=== PATIENT | female | born 1995 | race African-American/Black ===

== ENCOUNTER 2019-03-05 12:40 | Inpatient (IN) | payer BC ==
[~2019-03-05] VITALS: Ht 160 cm; Wt 137.9 kg
[2019-03-05 12:49] VITALS: BP_SYST 125
[2019-03-05] MEDS ORDERED: IPRATROPIUM/ALBUTEROL SULFATE 3 ML AMPUL.NEB (DUONEB) INH ONE ×2 (14:15→18:00)
[2019-03-05 14:37] LABS: BASOPHILS % (AUTO) 0.2 % (0.0-2.0); EOSINOPHILS # (AUTO) 0.2 K/uL (0.0-0.4); EOSINOPHILS % (AUTO) 2.3 % (0.0-4.0); HEMATOCRIT 39.5 % (36-48); HEMOGLOBIN 13.3 g/dL (12.0-16.0); LYMPHOCYTES # (AUTO) 2.7 K/uL (1.0-5.5); MEAN CORPUSCULAR HEMOGLOBIN 29 pg (27-31); MEAN CORPUSCULAR HGB CONC 34 % (32-36); MEAN CORPUSCULAR VOLUME 87 fL (79.0-98.0); MONOCYTES % (AUTO) 11.4 % (1.7-9.3); NEUTROPHILS % (AUTO) 56.1 % (40.0-70.0); PLATELET COUNT (AUTO) 365 K/uL (130-430); RED BLOOD CELL COUNT(AUTO) 4.55 MIL/uL (4.2-6.2); RED CELL DISTRIBUTION WIDTH 13.6 % (9.0-15.0); WHITE BLOOD COUNT (AUTO) 8.9 K/uL (4.8-10.8)
[2019-03-05 14:48] LABS: CALCIUM 9.2 mg/dL (8.4-11.0); CREATININE 0.63 mg/dL (0.55-1.30); POTASSIUM 3.6 mmol/L (3.5-5.1)
[2019-03-05 14:54] LABS: ALBUMIN 3.5 g/dL (3.4-4.8); PROTHROMBIN TIME 10.3 SECS (9.5-12.5); TOTAL BILIRUBIN 0.7 mg/dL (0.0-1.0)
[2019-03-05 15:21] LABS: BLOOD, URINE 2+ (NEGATIVE); CLARITY/URINE HAZY (CLEAR); COLOR,URINE YELLOW (YELLOW); GLUCOSE,URINE NEGATIVE (NEGATIVE); KETONES,URINE TRACE (NEGATIVE); LEUKOCYTE ESTERASE ,URINE NEGATIVE (NEGATIVE); NITRITE, URINE NEGATIVE (NEGATIVE); PROTEIN URINE 3+ (NEGATIVE)
[2019-03-05 15:28] LABS: BILIRUBIN,URINE NEGATIVE (NEGATIVE)
[2019-03-05 15:30] LABS: BACTERIA,URINE FEW /HPF (None Seen); HYALINE CASTS, URINE 0-10 /LPF (None Seen); MUCUS,URINE None Seen /LPF (None Seen); RBC,URINE 0-3 /HPF (0-3)
[2019-03-05] MEDS ORDERED: ENOXAPARIN SODIUM 120 MG/0.8 ML SYRINGE SUBCUT ONE (16:30)
[2019-03-05] MEDS ORDERED: IOHEXOL 350 mgI/mL, 150 ML INFUS..BTL IV ONE (16:34)
[2019-03-05] MEDS ORDERED: IPRATROPIUM/ALBUTEROL SULFATE 3 ML AMPUL.NEB (DUONEB) ONE (18:12)
[2019-03-05] MEDS ORDERED: PIPERACILLIN/TAZO 3.375 GM in NS 50 ML IV ONE (18:30)
[2019-03-05] MEDS: ALBUTEROL SULFATE 0.083% 2.5 MG/3 ML VIAL.NEB INH SCH ×2 (19:00→23:10)
[2019-03-05] MEDS: IPRATROPIUM BROM 0.5 MG/2.5 ML VIAL.NEB (ATROVENT) INH SCH ×2 (19:00→23:11)
[2019-03-05] MEDS ORDERED: PIPERACILLIN/TAZO 4.5 GM in NS 100 ML IV SCH ×2 (19:00→22:26)
[2019-03-05] MEDS ORDERED: ALBUTEROL SULFATE 0.083% 2.5 MG/3 ML VIAL.NEB INH PRN (19:00)
[2019-03-05] MEDS ORDERED: IPRATROPIUM BROM 0.5 MG/2.5 ML VIAL.NEB (ATROVENT) INH PRN (19:00)
[2019-03-05] MEDS ORDERED: PIPERACILLIN/TAZOBACTAM 3.375 GM/VIAL (ZOSYN) IV ONE (20:09)
[2019-03-05] MEDS: NACL 0.9% 1,000 ML IV SCH ×2 (20:59→22:52)
[2019-03-05] MEDS ORDERED: methylPREDNISolone SOD SUCC/PF 62.5 MG/ML VIAL IVP ONE (21:00)
[2019-03-05 21:20] VITALS: BP_SYST 149
[2019-03-05 22:00] VITALS: BP_SYST 136
[2019-03-05 22:16] VITALS: BP_SYST 136
[2019-03-05] MEDS ORDERED: PIPERACILLIN/TAZOBACTAM 4.5 GM/VIAL (ZOSYN) IV ONE (22:47)
[2019-03-05] MEDS ORDERED: AZITHROMYCIN 500 MG/VIAL (ZITHROMAX) IV ONE (22:48)
[2019-03-05] MEDS: AZITHROMYCIN 500 MG in NS 250 ML IV SCH (22:52)
[2019-03-05 23:00] VITALS: BP_SYST 163
[2019-03-06] VITALS (23 sets, daily range): BP systolic 111–174
[2019-03-06] MEDS: PIPERACILLIN/TAZO 4.5 GM in NS 100 ML IV SCH ×3 (01:39→17:54)
[2019-03-06] MEDS: ALBUTEROL SULFATE 0.083% 2.5 MG/3 ML VIAL.NEB INH SCH ×2 (03:43→07:28)
[2019-03-06] MEDS: IPRATROPIUM BROM 0.5 MG/2.5 ML VIAL.NEB (ATROVENT) INH SCH ×4 (03:43→19:41)
[2019-03-06 06:31] LABS: BASOPHILS % (AUTO) 0.4 % (0.0-2.0); EOSINOPHILS # (AUTO) 0.1 K/uL (0.0-0.4); EOSINOPHILS % (AUTO) 0.6 % (0.0-4.0); HEMATOCRIT 38.6 % (36-48); HEMOGLOBIN 12.7 g/dL (12.0-16.0); LYMPHOCYTES # (AUTO) 1.5 K/uL (1.0-5.5); LYMPHOCYTES % (AUTO) 17.4 % (20.5-51.5); MEAN CORPUSCULAR HEMOGLOBIN 30 pg (27-31); MEAN CORPUSCULAR HGB CONC 33 % (32-36); MEAN CORPUSCULAR VOLUME 90 fL (79.0-98.0); MONOCYTES # (AUTO) 0.5 K/uL (0.0-1.0); MONOCYTES % (AUTO) 5.7 % (1.7-9.3); NEUTROPHILS # (AUTO) 6.7 K/uL (1.8-7.7); NEUTROPHILS % (AUTO) 75.9 % (40.0-70.0); PLATELET COUNT (AUTO) 354 K/uL (130-430); RED CELL DISTRIBUTION WIDTH 13.7 % (9.0-15.0); WHITE BLOOD COUNT (AUTO) 8.9 K/uL (4.8-10.8)
[2019-03-06 07:05] LABS: ALBUMIN 3.2 g/dL (3.4-4.8); CALCIUM 9.3 mg/dL (8.4-11.0); CREATININE 0.76 mg/dL (0.55-1.30); PHOSPHORUS 4.7 mg/dL (2.7-4.5); POTASSIUM 3.8 mmol/L (3.5-5.1); TOTAL BILIRUBIN 0.8 mg/dL (0.0-1.0)
[2019-03-06] MEDS: ENOXAPARIN SODIUM 40 MG/0.4 ML SYRINGE SUBCUT SCH (09:34)
[2019-03-06] MEDS: methylPREDNISolone SOD SUCC 40 MG/ML VIAL IVP SCH ×2 (09:34→20:56)
[2019-03-06] MEDS: LevALBUTEROL HCL 1.25 MG/0.5 ML *CONC.* VIAL.NEB (XOPENEX CONC.) INH SCH ×2 (13:37→19:40)
[2019-03-06] MEDS: AZITHROMYCIN 500 MG in NS 250 ML IV SCH (21:04)
[2019-03-06] MEDS: ACETAMINOPHEN 325 MG TABLET PO PRN (22:55)
[2019-03-07] VITALS (24 sets, daily range): BP systolic 117–158
[2019-03-07] MEDS: LevALBUTEROL HCL 1.25 MG/0.5 ML *CONC.* VIAL.NEB (XOPENEX CONC.) INH SCH ×4 (00:20→19:35)
[2019-03-07] MEDS: IPRATROPIUM BROM 0.5 MG/2.5 ML VIAL.NEB (ATROVENT) INH SCH ×4 (00:20→19:35)
[2019-03-07] MEDS: PIPERACILLIN/TAZO 4.5 GM in NS 100 ML IV SCH ×3 (01:11→17:34)
[2019-03-07 06:38] LABS: BASOPHILS % (AUTO) 0.5 % (0.0-2.0); HEMATOCRIT 37.5 % (36-48); HEMOGLOBIN 12.2 g/dL (12.0-16.0); LYMPHOCYTES # (AUTO) 0.7 K/uL (1.0-5.5); LYMPHOCYTES % (AUTO) 8.2 % (20.5-51.5); MEAN CORPUSCULAR HEMOGLOBIN 29 pg (27-31); MEAN CORPUSCULAR HGB CONC 33 % (32-36); MEAN CORPUSCULAR VOLUME 90 fL (79.0-98.0); MONOCYTES # (AUTO) 0.8 K/uL (0.0-1.0); NEUTROPHILS # (AUTO) 7.3 K/uL (1.8-7.7); NEUTROPHILS % (AUTO) 82.3 % (40.0-70.0); PLATELET COUNT (AUTO) 297 K/uL (130-430); RED BLOOD CELL COUNT(AUTO) 4.17 MIL/uL (4.2-6.2); RED CELL DISTRIBUTION WIDTH 13.8 % (9.0-15.0); WHITE BLOOD COUNT (AUTO) 8.8 K/uL (4.8-10.8)
[2019-03-07] MEDS: ACETAMINOPHEN 325 MG TABLET PO PRN (06:55)
[2019-03-07 07:13] LABS: ALBUMIN 3.3 g/dL (3.4-4.8); CALCIUM 9.8 mg/dL (8.4-11.0); CREATININE 0.87 mg/dL (0.55-1.30); PHOSPHORUS 2.8 mg/dL (2.7-4.5); POTASSIUM 4.2 mmol/L (3.5-5.1); TOTAL BILIRUBIN 0.8 mg/dL (0.0-1.0)
[2019-03-07] MEDS: methylPREDNISolone SOD SUCC 40 MG/ML VIAL IVP SCH ×2 (08:12→20:26)
[2019-03-07] MEDS: ENOXAPARIN SODIUM 40 MG/0.4 ML SYRINGE SUBCUT SCH (08:13)
[2019-03-07] MEDS ORDERED: D5W 1,000 ML IV PRN (09:00)
[2019-03-07] MEDS ORDERED: GLUCOSE 15 GM GEL (in 37.5 GM TUBE) PO PRN (09:00)
[2019-03-07] MEDS ORDERED: DEXTROSE 50%-WATER 50 ML DISP.SYRIN IVP PRN (09:00)
[2019-03-07] MEDS: INSULIN REGULAR, HUMAN 100 UNITS/ML, 10 ML VIAL (humuLIN R) SUBCUT PRN ×4 (11:01→22:12)
[2019-03-07] MEDS ORDERED: INSULIN REGULAR, HUMAN 100 UNITS/ML, 10 ML VIAL SUBCUT ONE (12:00)
[2019-03-07] MEDS: VANCOMYCIN HCL 1,250 MG in NS 250 ML IV SCH (17:34)
[2019-03-07] MEDS ORDERED: INSULIN GLARGINE 100 UNITS/ML 10 ML VIAL SUBCUT SCH ×2 (21:00)
[2019-03-07] MEDS: AZITHROMYCIN 500 MG in NS 250 ML IV SCH (22:06)
[2019-03-08] VITALS (25 sets, daily range): BP systolic 115–174
[2019-03-08] MEDS: IPRATROPIUM BROM 0.5 MG/2.5 ML VIAL.NEB (ATROVENT) INH SCH ×4 (00:36→19:47)
[2019-03-08] MEDS: LevALBUTEROL HCL 1.25 MG/0.5 ML *CONC.* VIAL.NEB (XOPENEX CONC.) INH SCH ×4 (00:36→19:47)
[2019-03-08] MEDS: VANCOMYCIN HCL 1,250 MG in NS 250 ML IV SCH ×3 (01:23→17:45)
[2019-03-08] MEDS: PIPERACILLIN/TAZO 4.5 GM in NS 100 ML IV SCH ×3 (03:29→17:45)
[2019-03-08] MEDS: INSULIN REGULAR, HUMAN 100 UNITS/ML, 10 ML VIAL (humuLIN R) SUBCUT PRN ×3 (03:35→11:58)
[2019-03-08 06:52] LABS: BASOPHILS % (AUTO) 0.2 % (0.0-2.0); HEMATOCRIT 35.3 % (36-48); HEMOGLOBIN 11.7 g/dL (12.0-16.0); LYMPHOCYTES # (AUTO) 0.9 K/uL (1.0-5.5); LYMPHOCYTES % (AUTO) 11.6 % (20.5-51.5); MEAN CORPUSCULAR HEMOGLOBIN 30 pg (27-31); MEAN CORPUSCULAR HGB CONC 33 % (32-36); MEAN CORPUSCULAR VOLUME 90 fL (79.0-98.0); MONOCYTES # (AUTO) 0.7 K/uL (0.0-1.0); MONOCYTES % (AUTO) 8.5 % (1.7-9.3); NEUTROPHILS # (AUTO) 6.3 K/uL (1.8-7.7); NEUTROPHILS % (AUTO) 79.7 % (40.0-70.0); PLATELET COUNT (AUTO) 325 K/uL (130-430); RED BLOOD CELL COUNT(AUTO) 3.93 MIL/uL (4.2-6.2); RED CELL DISTRIBUTION WIDTH 13.8 % (9.0-15.0); WHITE BLOOD COUNT (AUTO) 7.8 K/uL (4.8-10.8)
[2019-03-08 07:13] LABS: ALBUMIN 3.1 g/dL (3.4-4.8); CALCIUM 9.5 mg/dL (8.4-11.0); CREATININE 0.78 mg/dL (0.55-1.30); POTASSIUM 4.1 mmol/L (3.5-5.1); THYROID STIMULATING HORMONE 0.75 uIu/mL (0.36-3.74); TOTAL BILIRUBIN 0.4 mg/dL (0.0-1.0)
[2019-03-08] MEDS: methylPREDNISolone SOD SUCC 40 MG/ML VIAL IVP SCH ×2 (09:03→21:16)
[2019-03-08] MEDS: ENOXAPARIN SODIUM 40 MG/0.4 ML SYRINGE SUBCUT SCH (09:04)
[2019-03-08] MEDS ORDERED: INSULIN NPH 100 UNITS/ML 10 ML VIAL SUBCUT ONE ×2 (12:30→23:00)
[2019-03-08] MEDS ORDERED: INSULIN LISPRO SLIDING SCALE 100 UNITS/ML VIAL (humaLOG) SUBCUT PRN (14:30)
[2019-03-08] MEDS ORDERED: INSULIN REGULAR, HUMAN 100 UNITS in NS 99 ML IV SCH ×2 (16:30)
[2019-03-08 17:06] LABS: CALCIUM 9.8 mg/dL (8.4-11.0); CREATININE 0.75 mg/dL (0.55-1.30); POTASSIUM 4.3 mmol/L (3.5-5.1); VANCOMYCIN,TROUGH 8.3 ug/mL (5.0-10.0)
[2019-03-08] MEDS ORDERED: INSULIN GLARGINE 100 UNITS/ML 10 ML VIAL SUBCUT SCH (21:00)
[2019-03-08] MEDS: AZITHROMYCIN 500 MG in NS 250 ML IV SCH (21:19)
[2019-03-08 22:07] LABS: CALCIUM 9.2 mg/dL (8.4-11.0); CREATININE 0.77 mg/dL (0.55-1.30); POTASSIUM 4.5 mmol/L (3.5-5.1)
[2019-03-09] VITALS (24 sets, daily range): BP systolic 116–151
[2019-03-09] MEDS: VANCOMYCIN HCL 1,250 MG in NS 250 ML IV SCH ×2 (00:04→09:34)
[2019-03-09] MEDS: IPRATROPIUM BROM 0.5 MG/2.5 ML VIAL.NEB (ATROVENT) INH SCH ×4 (01:00→19:25)
[2019-03-09] MEDS: LevALBUTEROL HCL 1.25 MG/0.5 ML *CONC.* VIAL.NEB (XOPENEX CONC.) INH SCH ×4 (01:00→19:25)
[2019-03-09] MEDS: PIPERACILLIN/TAZO 4.5 GM in NS 100 ML IV SCH ×3 (03:18→17:49)
[2019-03-09 05:48] LABS: BASOPHILS % (AUTO) 0.3 % (0.0-2.0); HEMATOCRIT 35.5 % (36-48); HEMOGLOBIN 11.8 g/dL (12.0-16.0); LYMPHOCYTES # (AUTO) 1.1 K/uL (1.0-5.5); LYMPHOCYTES % (AUTO) 14.6 % (20.5-51.5); MEAN CORPUSCULAR HEMOGLOBIN 29 pg (27-31); MEAN CORPUSCULAR HGB CONC 33 % (32-36); MEAN CORPUSCULAR VOLUME 88 fL (79.0-98.0); MONOCYTES # (AUTO) 0.7 K/uL (0.0-1.0); MONOCYTES % (AUTO) 9.4 % (1.7-9.3); NEUTROPHILS # (AUTO) 5.6 K/uL (1.8-7.7); NEUTROPHILS % (AUTO) 75.7 % (40.0-70.0); PLATELET COUNT (AUTO) 310 K/uL (130-430); RED BLOOD CELL COUNT(AUTO) 4.02 MIL/uL (4.2-6.2); RED CELL DISTRIBUTION WIDTH 13.3 % (9.0-15.0); WHITE BLOOD COUNT (AUTO) 7.3 K/uL (4.8-10.8)
[2019-03-09 06:21] LABS: CREATININE 0.75 mg/dL (0.55-1.30); TOTAL BILIRUBIN 0.4 mg/dL (0.0-1.0)
[2019-03-09] MEDS ORDERED: DEXTROSE 50% JECT 50 ML DISP.SYRIN IVP PRN (08:45)
[2019-03-09] MEDS: INSULIN Lispro Prot/Lispro MIX 75-25, 100 UNITS/ML, 10 ML VIAL SUBCUT SCH ×2 (09:32→17:54)
[2019-03-09] MEDS: methylPREDNISolone SOD SUCC 40 MG/ML VIAL IVP SCH (09:33)
[2019-03-09] MEDS: ENOXAPARIN SODIUM 40 MG/0.4 ML SYRINGE SUBCUT SCH (09:33)
[2019-03-09] MEDS: INSULIN LISPRO SLIDING SCALE 100 UNITS/ML VIAL (humaLOG) SUBCUT PRN ×3 (11:45→21:10)
[2019-03-09 14:06] LABS: HEPATITIS B CORE AB, TOTAL Negative (Negative); HEPATITIS B SURFACE AG Negative (Negative); HEPATITIS C VIRUS AB 0.1 s/co ratio (0.0-0.9)
[2019-03-09] MEDS: VANCOMYCIN HCL 1,750 MG in NS 500 ML IV SCH (16:06)
[2019-03-09] MEDS ORDERED: metFORMIN HCL 500 MG TABLET PO ONE (18:15)
[2019-03-09] MEDS: AZITHROMYCIN 500 MG in NS 250 ML IV SCH (21:12)
[2019-03-10] VITALS (19 sets, daily range): BP systolic 107–162
[2019-03-10] MEDS: VANCOMYCIN HCL 1,750 MG in NS 500 ML IV SCH (00:16)
[2019-03-10] MEDS: IPRATROPIUM BROM 0.5 MG/2.5 ML VIAL.NEB (ATROVENT) INH SCH ×4 (00:18→20:13)
[2019-03-10] MEDS: LevALBUTEROL HCL 1.25 MG/0.5 ML *CONC.* VIAL.NEB (XOPENEX CONC.) INH SCH ×4 (00:19→20:13)
[2019-03-10] MEDS: PIPERACILLIN/TAZO 4.5 GM in NS 100 ML IV SCH ×3 (01:24→18:07)
[2019-03-10 06:14] LABS: CALCIUM 9.2 mg/dL (8.4-11.0); CREATININE 0.65 mg/dL (0.55-1.30); POTASSIUM 3.4 mmol/L (3.5-5.1)
[2019-03-10] MEDS: INSULIN LISPRO SLIDING SCALE 100 UNITS/ML VIAL (humaLOG) SUBCUT PRN ×4 (06:52→20:23)
[2019-03-10] MEDS: INSULIN Lispro Prot/Lispro MIX 75-25, 100 UNITS/ML, 10 ML VIAL SUBCUT SCH ×2 (06:52→18:11)
[2019-03-10] MEDS: metFORMIN HCL 500 MG TABLET PO SCH ×2 (08:07→18:06)
[2019-03-10] MEDS: PREDNISONE 20 MG TABLET PO SCH (08:07)
[2019-03-10] MEDS: ENOXAPARIN SODIUM 40 MG/0.4 ML SYRINGE SUBCUT SCH (08:07)
[2019-03-10] MEDS ORDERED: POTASSIUM CHLORIDE 20 MEQ/PKT PACKET PO ONE (09:00)
[2019-03-11 01:11] VITALS: BP_SYST 124
[2019-03-11] MEDS: LevALBUTEROL HCL 1.25 MG/0.5 ML *CONC.* VIAL.NEB (XOPENEX CONC.) INH SCH ×4 (01:19→20:52)
[2019-03-11] MEDS: IPRATROPIUM BROM 0.5 MG/2.5 ML VIAL.NEB (ATROVENT) INH SCH ×4 (01:20→20:51)
[2019-03-11] MEDS: PIPERACILLIN/TAZO 4.5 GM in NS 100 ML IV SCH ×2 (01:24→10:32)
[2019-03-11 06:54] LABS: CALCIUM 8.9 mg/dL (8.4-11.0); CREATININE 0.64 mg/dL (0.55-1.30); POTASSIUM 3.4 mmol/L (3.5-5.1)
[2019-03-11 07:51] VITALS: BP_SYST 133
[2019-03-11] MEDS: INSULIN Lispro Prot/Lispro MIX 75-25, 100 UNITS/ML, 10 ML VIAL SUBCUT SCH ×2 (07:58→17:51)
[2019-03-11] MEDS: metFORMIN HCL 500 MG TABLET PO SCH ×2 (08:08→17:45)
[2019-03-11] MEDS: ENOXAPARIN SODIUM 40 MG/0.4 ML SYRINGE SUBCUT SCH (08:08)
[2019-03-11] MEDS: PREDNISONE 20 MG TABLET PO SCH (08:08)
[2019-03-11] MEDS ORDERED: POTASSIUM CHLORIDE 20 MEQ TAB.PRT.SR PO ONE ×2 (10:45→12:45)
[2019-03-11] MEDS ORDERED: LEVOFLOXACIN 500 MG TABLET PO ONE (11:00)
[2019-03-11 12:30] VITALS: BP_SYST 150
[2019-03-11 16:09] VITALS: BP_SYST 140
[2019-03-11 17:17] VITALS: BP_SYST 140
[2019-03-11] MEDS: INSULIN LISPRO SLIDING SCALE 100 UNITS/ML VIAL (humaLOG) SUBCUT PRN ×2 (17:50→21:27)
[2019-03-11 20:23] VITALS: BP_SYST 141
[2019-03-11] MEDS: POTASSIUM CHLORIDE 20 MEQ TAB.PRT.SR PO SCH (21:20)
[2019-03-12 00:58] VITALS: BP_SYST 153
[2019-03-12] MEDS: LevALBUTEROL HCL 1.25 MG/0.5 ML *CONC.* VIAL.NEB (XOPENEX CONC.) INH SCH ×4 (01:19→20:13)
[2019-03-12] MEDS: IPRATROPIUM BROM 0.5 MG/2.5 ML VIAL.NEB (ATROVENT) INH SCH ×4 (02:23→20:13)
[2019-03-12] MEDS: INSULIN Lispro Prot/Lispro MIX 75-25, 100 UNITS/ML, 10 ML VIAL SUBCUT SCH ×2 (06:44→18:02)
[2019-03-12] MEDS: INSULIN LISPRO SLIDING SCALE 100 UNITS/ML VIAL (humaLOG) SUBCUT PRN ×4 (06:45→20:51)
[2019-03-12 06:47] LABS: BASOPHILS # (AUTO) 0.1 K/uL (0.0-0.2); BASOPHILS % (AUTO) 0.9 % (0.0-2.0); EOSINOPHILS # (AUTO) 0.1 K/uL (0.0-0.4); EOSINOPHILS % (AUTO) 1.3 % (0.0-4.0); HEMATOCRIT 39.7 % (36-48); HEMOGLOBIN 13.1 g/dL (12.0-16.0); LYMPHOCYTES # (AUTO) 1.6 K/uL (1.0-5.5); MEAN CORPUSCULAR HEMOGLOBIN 29 pg (27-31); MEAN CORPUSCULAR HGB CONC 33 % (32-36); MEAN CORPUSCULAR VOLUME 87 fL (79.0-98.0); MONOCYTES # (AUTO) 0.4 K/uL (0.0-1.0); MONOCYTES % (AUTO) 5.2 % (1.7-9.3); NEUTROPHILS % (AUTO) 70.6 % (40.0-70.0); PLATELET COUNT (AUTO) 343 K/uL (130-430); RED BLOOD CELL COUNT(AUTO) 4.56 MIL/uL (4.2-6.2); RED CELL DISTRIBUTION WIDTH 13.4 % (9.0-15.0); WHITE BLOOD COUNT (AUTO) 7.1 K/uL (4.8-10.8)
[2019-03-12 07:37] LABS: CALCIUM 9.7 mg/dL (8.4-11.0); CREATININE 0.64 mg/dL (0.55-1.30); POTASSIUM 4.1 mmol/L (3.5-5.1)
[2019-03-12 08:00] VITALS: BP_SYST 149
[2019-03-12] MEDS: LEVOFLOXACIN 500 MG TABLET PO SCH (09:04)
[2019-03-12] MEDS: POTASSIUM CHLORIDE 20 MEQ TAB.PRT.SR PO SCH ×2 (09:05→20:46)
[2019-03-12] MEDS: metFORMIN HCL 500 MG TABLET PO SCH ×2 (09:05→17:59)
[2019-03-12] MEDS: PREDNISONE 20 MG TABLET PO SCH (09:05)
[2019-03-12] MEDS: ENOXAPARIN SODIUM 40 MG/0.4 ML SYRINGE SUBCUT SCH (09:07)
[2019-03-12 12:53] VITALS: BP_SYST 140
[2019-03-12 16:56] VITALS: BP_SYST 143
[2019-03-12 20:51] VITALS: BP_SYST 147
[2019-03-13] MEDS: LevALBUTEROL HCL 1.25 MG/0.5 ML *CONC.* VIAL.NEB (XOPENEX CONC.) INH SCH ×3 (01:03→13:08)
[2019-03-13] MEDS: IPRATROPIUM BROM 0.5 MG/2.5 ML VIAL.NEB (ATROVENT) INH SCH ×3 (01:04→13:08)
[2019-03-13 02:45] VITALS: BP_SYST 120
[2019-03-13] MEDS: INSULIN Lispro Prot/Lispro MIX 75-25, 100 UNITS/ML, 10 ML VIAL SUBCUT SCH ×2 (06:21→17:09)
[2019-03-13 08:00] VITALS: BP_SYST 149
[2019-03-13] MEDS: metFORMIN HCL 500 MG TABLET PO SCH ×2 (08:15→17:12)
[2019-03-13] MEDS: ENOXAPARIN SODIUM 40 MG/0.4 ML SYRINGE SUBCUT SCH (08:16)
[2019-03-13] MEDS: POTASSIUM CHLORIDE 20 MEQ TAB.PRT.SR PO SCH (08:16)
[2019-03-13] MEDS ORDERED: PREDNISONE 10 MG TABLET PO SCH (09:00)
[2019-03-13] MEDS: LEVOFLOXACIN 500 MG TABLET PO SCH (09:43)
[2019-03-13] MEDS ORDERED: INSNLG7030 SUBCUT (10:44)
[2019-03-13] MEDS ORDERED: GLU500 PO (10:45)
[2019-03-13] MEDS ORDERED: GLIP5TAB13 PO (10:46)
[2019-03-13] MEDS ORDERED: IPRA3AMP9 INH (10:47)
[2019-03-13 10:51] VITALS: BP_SYST 143
[2019-03-13] MEDS: INSULIN LISPRO SLIDING SCALE 100 UNITS/ML VIAL (humaLOG) SUBCUT PRN (11:29)
[2019-03-13 12:00] VITALS: BP_SYST 143
[2019-03-13] MEDS ORDERED: L.RH1CAP PO (13:04)
[2019-03-13] MEDS ORDERED: LEVO750T45 PO (13:04)
[2019-03-13 17:10] VITALS: BP_SYST 140
== END 2019-03-13 18:00 | disposition home health service (06) | DRG 871 ==
LOC: EDSEX 12:40 → SED 12:40 → STU 18:49 → SIC 20:42 → STU 03-10 17:55
PROVIDERS: ADMIT Internal Medicine; ATTEND Internal Medicine
PROC: 02HV33Z Insertion of Infusion Device into Superior Vena Cava, Percutaneous Approach (ICD-10-PCS; principal; 2019-03-06)
PROC: B548ZZA Ultrasonography of Superior Vena Cava, Guidance (ICD-10-PCS; 2019-03-06)
DX: A41.9 Sepsis, unspecified organism (principal); J18.9 Pneumonia, unspecified organism; J96.01 Acute respiratory failure with hypoxia; J98.11 Atelectasis; Z68.43 Body mass index [BMI] 50.0-59.9, adult; E44.1 Mild protein-calorie malnutrition; E11.65 Type 2 diabetes mellitus with hyperglycemia; E66.01 Morbid (severe) obesity due to excess calories; E86.0 Dehydration; E88.81 Metabolic syndrome and other insulin resistance; L83 Acanthosis nigricans; T38.0X5A Adverse effect of glucocorticoids and synthetic analogues, initial encounter; K76.0 Fatty (change of) liver, not elsewhere classified; E78.5 Hyperlipidemia, unspecified; A74.9 Chlamydial infection, unspecified; Z79.4 Long term (current) use of insulin; Z79.899 Other long term (current) drug therapy; Y92.89 Other specified places as the place of occurrence of the external cause
CPT/HCPCS: 36415; 36600; 71045; 71275; 80048; 80053; 80061; 80202-TC; 81000-TC; 82803-TC; 82962; 83036; 83605; 83735-TC; 84100-TC; 84443-TC; 84484; 84703; 85025; 85379; 85610-TC; 85730-TC; 86704; 86706; 86710; 86738; 86803; 86886; 86900; 86901; 87040-TC; 87081; 87086; 87340; 87449; 93005; 93306; 94010; 94640; 94660; 94760; 96365; 96372; 99285; C1751; G0378; J0456; J1030; J1650; J1815; J2543; J2930; J3370; J7030; J7040; J7050; J7512; J7612; J7613; J7620; Q9967